=== PATIENT | male | born 1940 | race Caucasian/White ===

== ENCOUNTER 2019-03-14 18:03 | Emergency (ER) | payer OTHER ==
[~2019-03-14] VITALS: Ht 172.7 cm; Wt 72.6 kg
[~2019-03-14 18:03] MED LIST: HYDACE5325 PO
[2019-03-14 18:52] LABS: BASOPHILS ABSOLUTE AUTO 0.09 K/mm3 (0.00-0.23); BASOPHILS PERCENT AUTO 1 % (0-2); EOSINOPHILS ABSOLUTE AUTO 0.18 K/mm3 (0.00-0.68); EOSINOPHILS PERCENT AUTO 3 % (0-6); Hemoglobin 11.2 g/dL (13.5-17.5); IMMATURE GRAN ABSOLUTE AUTO 0.01 K/mm3 (0.00-0.10); IMMATURE GRAN PERCENT AUTO 0 % (0-1); LYMPHOCYTES ABSOLUTE AUTO 1.35 K/mm3 (0.84-5.20); LYMPHOCYTES PERCENT AUTO 21 % (21-46); MONOCYTES ABSOLUTE AUTO 0.79 K/mm3 (0.16-1.47); MONOCYTES PERCENT AUTO 12 % (4-13); Mean Corpuscular HGB 32.4 pg (26.0-34.0); Mean Corpuscular Volume 101 fL (80-100); Mean Platelet Volume 9.4 fL (9.1-12.4); NEUTROPHILS ABSOLUTE AUTO 3.96 K/mm3 (1.96-9.15); NEUTROPHILS PERCENT AUTO 62 % (41-73); Platelet Count 319 K/mm3 (150-400); RDW Coefficient Variation 12.9 % (11.7-14.2); RDW Standard Deviation 48.1 fL (35.1-46.3); Red Blood Cell Count 3.46 M/mm3 (4.30-5.90); White Blood Cell Count 6.38 K/mm3 (4.00-11.30)
[2019-03-14 19:18] LABS: Alanine Aminotransfer (ALT/SGP 23 U/L (12-78); Albumin/Globulin Ratio 1.1 (0.8-1.8); Alk Phos 70 U/L (50-136); Anion Gap 7 mmol/L (6-16); Aspartate Aminotrans (AST/SGOT 22 U/L (12-37); Bilirubin, Total 0.2 mg/dL (0.1-1.0); Blood Urea Nitrogen 35 mg/dL (8-24); Bun/Creatinine Ratio 18.2 (12.0-20.0); CO2, Blood 21 mmol/L (21-32); Calcium, Blood 8.7 mg/dL (8.5-10.1); Chloride, Blood 109 mmol/L (98-108); Creatinine, Blood 1.92 mg/dL (0.60-1.20); Globulin, Blood 3.7 g/dL (2.2-4.0); Glomerular Filtration Rate 36 (60-); Glucose, Blood 92 mg/dL (70-99); Potassium, Blood 5.3 mmol/L (3.5-5.5); Sodium, Blood 137 mmol/L (136-145); Total Protein, Blood 7.7 g/dL (6.4-8.2); Troponin I <0.015 ng/mL (0.000-0.040)
== END 2019-03-14 19:45 | disposition home or self-care (01) ==
LOC: ER 18:03
PROVIDERS: Physician Assistant
DX: N28.9 Disorder of kidney and ureter, unspecified (principal); E87.5 Hyperkalemia; I10 Essential (primary) hypertension; Z86.73 Personal history of transient ischemic attack (TIA), and cerebral infarction without residual deficits; F17.210 Nicotine dependence, cigarettes, uncomplicated
CPT/HCPCS: 36415; 71046; 80053; 84484; 85025; 93005; 93010; 99284-25

== ENCOUNTER 2019-11-11 20:48 | Emergency (ER) | payer OTHER ==
[~2019-11-11] VITALS: Ht 172.7 cm; Wt 70.3 kg
[2019-11-11 21:27] LABS: BASOPHILS PERCENT AUTO 1 % (0-2); EOSINOPHILS ABSOLUTE AUTO 0.26 K/mm3 (0.00-0.68); EOSINOPHILS PERCENT AUTO 3 % (0-6); Hematocrit 29.5 % (37.0-53.0); Hemoglobin 9.6 g/dL (13.5-17.5); IMMATURE GRAN ABSOLUTE AUTO 0.03 K/mm3 (0.00-0.10); IMMATURE GRAN PERCENT AUTO 0 % (0-1); LYMPHOCYTES ABSOLUTE AUTO 1.58 K/mm3 (0.84-5.20); LYMPHOCYTES PERCENT AUTO 17 % (21-46); MONOCYTES ABSOLUTE AUTO 1.15 K/mm3 (0.16-1.47); MONOCYTES PERCENT AUTO 12 % (4-13); Mean Corpuscular HGB 31.7 pg (26.0-34.0); Mean Corpuscular HGB Conc 32.5 g/dL (31.5-36.5); Mean Corpuscular Volume 97 fL (80-100); Mean Platelet Volume 9.3 fL (9.1-12.4); NEUTROPHILS ABSOLUTE AUTO 6.26 K/mm3 (1.96-9.15); NEUTROPHILS PERCENT AUTO 67 % (41-73); Platelet Count 586 K/mm3 (150-400); RDW Coefficient Variation 12.3 % (11.7-14.2); RDW Standard Deviation 44.1 fL (35.1-46.3); Red Blood Cell Count 3.03 M/mm3 (4.30-5.90); White Blood Cell Count 9.38 K/mm3 (4.00-11.30)
[2019-11-11 21:45] LABS: Albumin, Blood 3.1 g/dL (3.4-5.0); Albumin/Globulin Ratio 0.7 (0.8-1.8); Bilirubin, Total 0.2 mg/dL (0.1-1.0); Bun/Creatinine Ratio 16.8 (12.0-20.0); Calcium, Blood 9.1 mg/dL (8.5-10.1); Creatinine, Blood 2.02 mg/dL (0.60-1.20); Globulin, Blood 4.4 g/dL (2.2-4.0); Potassium, Blood 3.7 mmol/L (3.5-5.5); Total Protein, Blood 7.5 g/dL (6.4-8.2)
[2019-11-11] MEDS ORDERED: OXYC5 PO (22:19)
[2019-11-11] MEDS ORDERED: ASPI81CH PO (22:20)
[2019-11-11] MEDS ORDERED: OXYC10ER PO (22:20)
[2019-11-11] MEDS ORDERED: Lipitor10 MG PO (22:21)
[2019-11-11] MEDS ORDERED: Prozac20 MG PO (22:21)
[2019-11-11] MEDS ORDERED: GABA300 PO (22:21)
[2019-11-11] MEDS ORDERED: CENTRUM SILVER1 EAC2 PO (22:21)
[2019-11-11] MEDS ORDERED: STIOLTO RESPIMAT4 G1 (22:22)
[2019-11-11] MEDS ORDERED: PROAIR RESPICL90 MCG (22:22)
[2019-11-11] MEDS ORDERED: OMEPRAZOLE20 M1 PO (22:22)
[2019-11-11] MEDS ORDERED: TERA5 PO (22:23)
[2019-11-11] MEDS ORDERED: AMLO10 PO (22:24)
[2019-11-11] MEDS ORDERED: VITAMIN D310 MC4 (22:24)
[2019-11-11 22:28] LABS: Source, Urine Catheter
[2019-11-11 22:37] LABS: Appearance, Urine Clear (Clear); Bilirubin, Urine Neg (Neg); Blood, Urine 4+ (Neg); Color, Urine Yellow (P-Yellow); Glucose Qualitative, Urine Neg (Neg); Ketones, Urine Neg (Neg); Leukocyte Esterase, Urine 1+ (Neg); Nitrite, Urine Neg (Neg); Protein, Urine 2+ (Neg); Specific Gravity, Urine 1.015 (1.003-1.022); Urobilinogen, Urine NORM (Normal)
[2019-11-11 22:45] LABS: Bacteria Many /hpf; Squamous Epithelial Cells Not Seen /hpf (Few); White Blood Cells, Urine 0-2 /hpf (0-5)
[2019-11-12] MEDS ORDERED: CEFP200 PO (00:24)
== END 2019-11-12 01:14 | disposition home or self-care (01) ==
LOC: ER 20:48
PROVIDERS: Emergency Medicine
DX: N39.0 Urinary tract infection, site not specified (principal); I10 Essential (primary) hypertension; Z96.0 Presence of urogenital implants; Z86.73 Personal history of transient ischemic attack (TIA), and cerebral infarction without residual deficits; Z87.891 Personal history of nicotine dependence
CPT/HCPCS: 36415; 51798; 80053; 81001; 85025; 96365; 96366; 99283-25; J0696; J7030

== ENCOUNTER 2020-05-04 16:52 | Inpatient (IN) | payer OTHER ==
[~2020-05-04] VITALS: Ht 172.7 cm; Wt 76.1 kg
[~2020-05-04 16:52] MED LIST changes: +AMLO10 PO; +ASPI81CH PO; +ATOR40TA PO; +CEFP200 PO; +CENTRUM SILVER1 EAC2 PO; +GABA300 PO; +OMEPRAZOLE20 M1 PO; +OXYC10ER PO; +OXYC5 PO; +PROAIR RESPICL90 MCG INH; +Prozac20 MG PO; +STIOLTO RESPIMAT4 G1 INH; +TERA5 PO; +VITAMIN D310 MC4
[2020-05-04 18:18] LABS: BASOPHILS ABSOLUTE AUTO 0.09 K/mm3 (0.00-0.23); BASOPHILS PERCENT AUTO 2 % (0-2); EOSINOPHILS PERCENT AUTO 5 % (0-6); Hematocrit 36.6 % (37.0-53.0); Hemoglobin 12.2 g/dL (13.5-17.5); IMMATURE GRAN ABSOLUTE AUTO 0.01 K/mm3 (0.00-0.10); IMMATURE GRAN PERCENT AUTO 0 % (0-1); LYMPHOCYTES ABSOLUTE AUTO 1.45 K/mm3 (0.84-5.20); LYMPHOCYTES PERCENT AUTO 24 % (21-46); MONOCYTES ABSOLUTE AUTO 0.93 K/mm3 (0.16-1.47); MONOCYTES PERCENT AUTO 15 % (4-13); Mean Corpuscular HGB 31.8 pg (26.0-34.0); Mean Corpuscular HGB Conc 33.3 g/dL (31.5-36.5); Mean Corpuscular Volume 95 fL (80-100); Mean Platelet Volume 10.1 fL (9.1-12.4); NEUTROPHILS ABSOLUTE AUTO 3.26 K/mm3 (1.96-9.15); NEUTROPHILS PERCENT AUTO 54 % (41-73); Platelet Count 247 K/mm3 (150-400); RDW Coefficient Variation 12.9 % (11.7-14.2); RDW Standard Deviation 45.2 fL (35.1-46.3); Red Blood Cell Count 3.84 M/mm3 (4.30-5.90); White Blood Cell Count 6.04 K/mm3 (4.00-11.30)
[2020-05-04 18:25] LABS: Ethanol (Alcohol), Blood, Med <3 mg/dL
[2020-05-04 18:26] LABS: Alanine Aminotransfer (ALT/SGP 26 U/L (12-78); Albumin, Blood 3.9 g/dL (3.4-5.0); Alk Phos 107 U/L (50-136); Anion Gap 4 mmol/L (6-16); Aspartate Aminotrans (AST/SGOT 39 U/L (12-37); Bilirubin, Total 0.5 mg/dL (0.1-1.0); Blood Urea Nitrogen 34 mg/dL (8-24); Bun/Creatinine Ratio 22.2 (12.0-20.0); CO2, Blood 21 mmol/L (21-32); Calcium, Blood 9.4 mg/dL (8.5-10.1); Chloride, Blood 113 mmol/L (98-108); Creatinine, Blood 1.53 mg/dL (0.60-1.20); Globulin, Blood 3.9 g/dL (2.2-4.0); Glomerular Filtration Rate 47 (60-); Glucose, Blood 93 mg/dL (70-99); Potassium, Blood 5.3 mmol/L (3.5-5.5); Sodium, Blood 138 mmol/L (136-145); Total Protein, Blood 7.8 g/dL (6.4-8.2)
[2020-05-04 19:27] LABS: U Amphetamine Screen Not Detected; U Barbituate Screen Not Detected; U Benzodiazapine Screen Not Detected; U Cocaine Screen Not Detected; U Methamphetamine Screen Not Detected
[2020-05-04 19:28] LABS: U Buprenorphine Screen Not Detected; U Cannabinoids Screen DETECTED; U Methadone Screen Not Detected; U Opiates Screen DETECTED; U Oxycodone Screen Not Detected; U Phencyclidine Screen Not Detected; U Propoxyphene Screen Not Detected
[2020-05-04] MEDS ORDERED: DOXY100 PO (21:48)
[2020-05-04] MEDS ORDERED: FAMO20 PO (21:48)
[2020-05-04] MEDS ORDERED: NUTRITIONAL SUPPLEME PO (21:52)
[2020-05-04] MEDS ORDERED: Inderal 20 mg T20 MG PO (21:54)
[2020-05-04] MEDS ORDERED: TERA5 PO (21:54)
[2020-05-04] MEDS ORDERED: FISH OIL 1,2001 EAC7 PO (21:57)
[2020-05-04] MEDS ORDERED: GLUCOSAMINE-CH1 EAC7 PO (21:59)
[2020-05-04] MEDS ORDERED: CENTRUM SILVER1 EAC2 PO (22:01)
[2020-05-04] MEDS ORDERED: TRIA15CR3 TOP (22:01)
[2020-05-05 05:18] LABS: BASOPHILS ABSOLUTE AUTO 0.08 K/mm3 (0.00-0.23); BASOPHILS PERCENT AUTO 1 % (0-2); EOSINOPHILS ABSOLUTE AUTO 0.32 K/mm3 (0.00-0.68); EOSINOPHILS PERCENT AUTO 5 % (0-6); Hematocrit 33.6 % (37.0-53.0); IMMATURE GRAN ABSOLUTE AUTO 0.02 K/mm3 (0.00-0.10); IMMATURE GRAN PERCENT AUTO 0 % (0-1); LYMPHOCYTES ABSOLUTE AUTO 1.41 K/mm3 (0.84-5.20); LYMPHOCYTES PERCENT AUTO 24 % (21-46); MONOCYTES ABSOLUTE AUTO 0.79 K/mm3 (0.16-1.47); MONOCYTES PERCENT AUTO 13 % (4-13); Mean Corpuscular HGB 30.9 pg (26.0-34.0); Mean Corpuscular HGB Conc 32.7 g/dL (31.5-36.5); Mean Corpuscular Volume 94 fL (80-100); NEUTROPHILS ABSOLUTE AUTO 3.28 K/mm3 (1.96-9.15); NEUTROPHILS PERCENT AUTO 56 % (41-73); Platelet Count 270 K/mm3 (150-400); RDW Coefficient Variation 12.9 % (11.7-14.2); RDW Standard Deviation 44.5 fL (35.1-46.3); Red Blood Cell Count 3.56 M/mm3 (4.30-5.90)
[2020-05-05 06:13] LABS: Alanine Aminotransfer (ALT/SGP 22 U/L (12-78); Albumin, Blood 3.2 g/dL (3.4-5.0); Albumin/Globulin Ratio 0.9 (0.8-1.8); Alk Phos 93 U/L (50-136); Anion Gap 7 mmol/L (6-16); Aspartate Aminotrans (AST/SGOT 24 U/L (12-37); Bilirubin, Total 0.3 mg/dL (0.1-1.0); Blood Urea Nitrogen 33 mg/dL (8-24); Bun/Creatinine Ratio 22.1 (12.0-20.0); CHOL/HDL RATIO 3.6; CO2, Blood 23 mmol/L (21-32); Calcium, Blood 8.9 mg/dL (8.5-10.1); Chloride, Blood 114 mmol/L (98-108); Cholesterol 150 mg/dL (50-200); Creatinine, Blood 1.49 mg/dL (0.60-1.20); Globulin, Blood 3.6 g/dL (2.2-4.0); Glomerular Filtration Rate 48 (60-); Glucose, Blood 88 mg/dL (70-99); HDL Cholesterol 42 mg/dL (>39); LDL/HDL RATIO 1.2; Low Density Lipoprotein Chol 51 mg/dL (0-110); Potassium, Blood 4.4 mmol/L (3.5-5.5); Sodium, Blood 144 mmol/L (136-145); Total Protein, Blood 6.8 g/dL (6.4-8.2); Triglycerides 283 mg/dL (30-160); Very Low Density Lipoprot Chol 56 mg/dL (6-32)
--- NOTE | 2020-05-05 06:29 | NUR ---
SHIFT SUMMARY PT ER ADMIT THIS SHIFT FOR CVA, PT HAS HX OF CVA. PT IS A/OX4, BUT IS SLOW TO REPSOND, ASSISTS WITH ANSWERING MOST OF PT HEALTH HISTORY. PT HAS MININAL NEURO DEFICITS WITH ASSESSMENT. NO WEAKNESS NOTED. THERE IS SOME HEMIPARESIS PRESENT PT HAS DIFFICULTY BRINGING PEN TO PAPER TO SIGN FORM AND SHIFTS PEN OFF TO THE SIDE AWAY FROM THE PAPER. PT BP STAYING UNDER 200 SBP. PERMISSIVE HTN ALLOWED PER DR. ROD'S NOTES. PT HAS RESTED MOST OF THE NIGHT. NSR ON TELE. MRI TO BE DONE TODAY. BED IN LOWEST POSITION, CALL LIGHT WITHIN REACH.
--- NOTE | 2020-05-05 10:06 | NUR ---
Echocardiogram using 9.0ml of agitated saline contrast performed.
--- NOTE | 2020-05-05 20:10 | NUR ---
alert at baseline, cooperative but forgetful, rm air, spent here during visitation and stated he was less alert then his baseline, call light in reach, bed in low position, saline locked, no change in neuro checks, saline locked, bed in low position, down for mri via wc, bsr shared with noc nurse and pt
--- NOTE | 2020-05-05 22:40 | NUR ---
1944 79 Y/O MALE RESTING COMFORTABLY IN BED; CHEERFUL; NO NEUROLOGICAL DEFICITS NOTED.
--- NOTE | 2020-05-06 05:01 | NUR ---
SHIFT SUMMARY: 79 Y/O MALE RESTED COMFORTABLY ALL SHIFT; PT ABLE TO TRANSFER AND AMBULATE ONE STANDBY ASSIST TO BATHROOM AND BACK WITH GAIT SLOW AND STEADY; NO NEUROLOGICAL DEFICITS NOTED; PT TENDS TO BE IMPULSIVE AT TIMES WITH BED ALARM SET OFF; PT WAS ABLE TO BE REDIRECTED WITHOUT ISSUE; PT ALERT AND ORIENTED X 3; BILATERAL HAND ULTRASOUND TECHNOLOGIST AND FOOT PUSH AND PULLS STRONG AND EQUAL; TELEMETRY REFLECTS NSR PER VANI--REST ROOM MAID; BED ALARM APPLIED FOR SAFETY, BED LOW POSITION WITH CALL LIGHT AT SIDE.
[2020-05-06] MEDS ORDERED: CLOP75 PO (12:37)
--- NOTE | 2020-05-06 16:17 | NUR ---
DISCHARGE:eschorted to door of family vehicle, assisted in, driving, REVIEWED: with pt and , stay, dc medicaions, need for follow up appointments REMOVED tele and iv with no negative effect noted, pt stated that he had enjoyed his stay but was looking foreard to getting home
== END 2020-05-06 16:22 | disposition home health service (06) | DRG 65 ==
LOC: ER 16:52 → MEDS 16:53
PROVIDERS: Physician Assistant; ADMIT Internal Medicine
DX: I63.9 Cerebral infarction, unspecified (principal); I25.3 Aneurysm of heart; I12.9 Hypertensive chronic kidney disease with stage 1 through stage 4 chronic kidney disease, or unspecified chronic kidney disease; N18.30 Chronic kidney disease, stage 3 unspecified; I65.23 Occlusion and stenosis of bilateral carotid arteries; I34.0 Nonrheumatic mitral (valve) insufficiency; Z66 Do not resuscitate; J44.9 Chronic obstructive pulmonary disease, unspecified; I73.9 Peripheral vascular disease, unspecified; M19.90 Unspecified osteoarthritis, unspecified site; N40.0 Benign prostatic hyperplasia without lower urinary tract symptoms; Z79.82 Long term (current) use of aspirin; Z87.891 Personal history of nicotine dependence; Z86.73 Personal history of transient ischemic attack (TIA), and cerebral infarction without residual deficits
CPT/HCPCS: 36415; 70450; 70544; 70549; 80053; 80061; 82947; 84443; 85025; 93005; 93010; 93306; 94640; 94760; 96372; 97110; 97116; 97162; 97530; 99285-25; A9270; A9579; G0378; G0480; J1644

== ENCOUNTER 2020-08-03 12:25 | Emergency (ER) | payer OTHER ==
[~2020-08-03] VITALS: Ht 172.7 cm; Wt 72.6 kg
[~2020-08-03 12:25] MED LIST changes: +CLOP75 PO; +DOXY100 PO; +FAMO20 PO; +FISH OIL 1,2001 EAC7 PO; +GLUCOSAMINE-CH1 EAC7 PO; +Inderal 20 mg T20 MG PO; +NUTRITIONAL SUPPLEME PO; +TRIA15CR3 TOP
[2020-08-03] MEDS ORDERED: VITAMIN D3-ALO1 EACH PO (12:50)
[2020-08-03 13:34] LABS: BASOPHILS ABSOLUTE AUTO 0.12 K/mm3 (0.00-0.23); BASOPHILS PERCENT AUTO 1 % (0-2); EOSINOPHILS ABSOLUTE AUTO 0.49 K/mm3 (0.00-0.68); EOSINOPHILS PERCENT AUTO 5 % (0-6); Hematocrit 34.2 % (37.0-53.0); Hemoglobin 11.5 g/dL (13.5-17.5); IMMATURE GRAN ABSOLUTE AUTO 0.02 K/mm3 (0.00-0.10); IMMATURE GRAN PERCENT AUTO 0 % (0-1); LYMPHOCYTES PERCENT AUTO 9 % (21-46); MONOCYTES ABSOLUTE AUTO 0.92 K/mm3 (0.16-1.47); MONOCYTES PERCENT AUTO 10 % (4-13); Mean Corpuscular HGB 32.5 pg (26.0-34.0); Mean Corpuscular HGB Conc 33.6 g/dL (31.5-36.5); Mean Corpuscular Volume 97 fL (80-100); NEUTROPHILS ABSOLUTE AUTO 7.08 K/mm3 (1.96-9.15); NEUTROPHILS PERCENT AUTO 75 % (41-73); Platelet Count 291 K/mm3 (150-400); RDW Coefficient Variation 12.9 % (11.7-14.2); RDW Standard Deviation 46.5 fL (35.1-46.3); Red Blood Cell Count 3.54 M/mm3 (4.30-5.90); White Blood Cell Count 9.43 K/mm3 (4.00-11.30)
[2020-08-03 13:48] LABS: Albumin, Blood 3.7 g/dL (3.4-5.0); Bilirubin, Total 0.3 mg/dL (0.1-1.0); Bun/Creatinine Ratio 21.2 (12.0-20.0); Calcium, Blood 8.8 mg/dL (8.5-10.1); Creatinine, Blood 1.51 mg/dL (0.60-1.20); Globulin, Blood 3.7 g/dL (2.2-4.0); Potassium, Blood 4.8 mmol/L (3.5-5.5); Total Protein, Blood 7.4 g/dL (6.4-8.2); Troponin I 0.124 ng/mL (0.000-0.040)
== END 2020-08-03 15:45 | disposition short-term general hospital (02) ==
LOC: ER 12:25
PROVIDERS: Emergency Medicine
DX: S06.6X9A Traumatic subarachnoid hemorrhage with loss of consciousness of unspecified duration, initial encounter (principal); I10 Essential (primary) hypertension; Z87.891 Personal history of nicotine dependence; Z86.73 Personal history of transient ischemic attack (TIA), and cerebral infarction without residual deficits; Z79.82 Long term (current) use of aspirin; Z79.899 Other long term (current) drug therapy; W18.30XA Fall on same level, unspecified, initial encounter; Y92.000 Kitchen of unspecified non-institutional (private) residence as the place of occurrence of the external cause
CPT/HCPCS: 70450; 71045; 72125; 80053; 83880; 84484; 85025; 93005; 93010; 99285-25

== ENCOUNTER 2020-10-08 12:39 | Emergency (ER) | payer OTHER ==
[~2020-10-08] VITALS: Ht 172.7 cm; Wt 72.6 kg
[~2020-10-08 12:39] MED LIST changes: +VITAMIN D3-ALO1 EACH PO
[2020-10-08 13:12] LABS: BASOPHILS ABSOLUTE AUTO 0.09 K/mm3 (0.00-0.23); BASOPHILS PERCENT AUTO 1 % (0-2); EOSINOPHILS ABSOLUTE AUTO 0.16 K/mm3 (0.00-0.68); EOSINOPHILS PERCENT AUTO 2 % (0-6); Hematocrit 36.1 % (37.0-53.0); Hemoglobin 11.9 g/dL (13.5-17.5); IMMATURE GRAN ABSOLUTE AUTO 0.02 K/mm3 (0.00-0.10); IMMATURE GRAN PERCENT AUTO 0 % (0-1); LYMPHOCYTES ABSOLUTE AUTO 1.23 K/mm3 (0.84-5.20); LYMPHOCYTES PERCENT AUTO 19 % (21-46); MONOCYTES ABSOLUTE AUTO 0.82 K/mm3 (0.16-1.47); MONOCYTES PERCENT AUTO 12 % (4-13); Mean Corpuscular HGB 32.4 pg (26.0-34.0); Mean Corpuscular Volume 98 fL (80-100); Mean Platelet Volume 9.7 fL (9.1-12.4); NEUTROPHILS ABSOLUTE AUTO 4.29 K/mm3 (1.96-9.15); NEUTROPHILS PERCENT AUTO 65 % (41-73); Platelet Count 322 K/mm3 (150-400); RDW Coefficient Variation 12.5 % (11.7-14.2); RDW Standard Deviation 45.3 fL (35.1-46.3); Red Blood Cell Count 3.67 M/mm3 (4.30-5.90); White Blood Cell Count 6.61 K/mm3 (4.00-11.30)
[2020-10-08 13:25] LABS: Albumin, Blood 3.2 g/dL (3.4-5.0); Albumin/Globulin Ratio 0.9 (0.8-1.8); Bilirubin, Total 0.3 mg/dL (0.1-1.0); Bun/Creatinine Ratio 16.9 (12.0-20.0); Calcium, Blood 8.9 mg/dL (8.5-10.1); Creatinine, Blood 1.3 mg/dL (0.60-1.20); Globulin, Blood 3.7 g/dL (2.2-4.0); Potassium, Blood 4.4 mmol/L (3.5-5.5); Total Protein, Blood 6.9 g/dL (6.4-8.2)
[2020-10-08 17:46] LABS: International Normalized Ratio 0.99; Prothrombin Time Results 10.7 Sec (9.7-11.5)
== END 2020-10-08 21:20 | disposition short-term general hospital (02) ==
LOC: ER 12:39
PROVIDERS: Emergency Medicine; Student in an Organized Health Care Education/Training Program
DX: I62.01 Nontraumatic acute subdural hemorrhage (principal); R41.0 Disorientation, unspecified; I10 Essential (primary) hypertension; T45.525A Adverse effect of antithrombotic drugs, initial encounter; Z87.891 Personal history of nicotine dependence; Z79.899 Other long term (current) drug therapy
CPT/HCPCS: 36415; 70450; 80053; 85025; 85610; 85730; 86850; 86900; 86901; 93005; 93010; 96365; 96366; 96368; 96375; 99285-25; J0360; J1953; J2597

== ENCOUNTER 2020-11-07 18:53 | Emergency (ER) | payer OTHER ==
[~2020-11-07] VITALS: Ht 175.3 cm; Wt 76.7 kg
[2020-11-07 19:33] LABS: BASOPHILS PERCENT AUTO 1 % (0-2); EOSINOPHILS ABSOLUTE AUTO 0.41 K/mm3 (0.00-0.68); EOSINOPHILS PERCENT AUTO 5 % (0-6); Hematocrit 37.1 % (37.0-53.0); IMMATURE GRAN ABSOLUTE AUTO 0.09 K/mm3 (0.00-0.10); IMMATURE GRAN PERCENT AUTO 1 % (0-1); LYMPHOCYTES ABSOLUTE AUTO 1.41 K/mm3 (0.84-5.20); LYMPHOCYTES PERCENT AUTO 19 % (21-46); MONOCYTES ABSOLUTE AUTO 0.87 K/mm3 (0.16-1.47); MONOCYTES PERCENT AUTO 11 % (4-13); Mean Corpuscular HGB 31.8 pg (26.0-34.0); Mean Corpuscular HGB Conc 32.3 g/dL (31.5-36.5); Mean Corpuscular Volume 98 fL (80-100); Mean Platelet Volume 9.8 fL (9.1-12.4); NEUTROPHILS ABSOLUTE AUTO 4.74 K/mm3 (1.96-9.15); NEUTROPHILS PERCENT AUTO 62 % (41-73); Platelet Count 347 K/mm3 (150-400); RDW Coefficient Variation 12.4 % (11.7-14.2); RDW Standard Deviation 45.1 fL (35.1-46.3); Red Blood Cell Count 3.77 M/mm3 (4.30-5.90); White Blood Cell Count 7.62 K/mm3 (4.00-11.30)
[2020-11-07 19:44] LABS: Albumin, Blood 3.3 g/dL (3.4-5.0); Albumin/Globulin Ratio 0.8 (0.8-1.8); Bilirubin, Total 0.3 mg/dL (0.1-1.0); Bun/Creatinine Ratio 16.4 (12.0-20.0); Calcium, Blood 8.9 mg/dL (8.5-10.1); Creatinine, Blood 1.65 mg/dL (0.60-1.20); Globulin, Blood 3.9 g/dL (2.2-4.0); Potassium, Blood 4.9 mmol/L (3.5-5.5); Total Protein, Blood 7.2 g/dL (6.4-8.2)
== END 2020-11-07 21:50 | disposition home or self-care (01) ==
LOC: ER 18:53
PROVIDERS: Emergency Medicine
DX: S09.90XA Unspecified injury of head, initial encounter (principal); I62.03 Nontraumatic chronic subdural hemorrhage; I10 Essential (primary) hypertension; Z79.82 Long term (current) use of aspirin; Z87.891 Personal history of nicotine dependence; Z79.02 Long term (current) use of antithrombotics/antiplatelets; W01.198A Fall on same level from slipping, tripping and stumbling with subsequent striking against other object, initial encounter; Y93.G1 Activity, food preparation and clean up; Y92.000 Kitchen of unspecified non-institutional (private) residence as the place of occurrence of the external cause
CPT/HCPCS: 36415; 70450; 71045; 72125; 80053; 85025; 99284-25

== ENCOUNTER 2021-04-01 14:57 | Inpatient (IN) | payer OTHER ==
[~2021-04-01] VITALS: Ht 172.7 cm; Wt 72.2 kg
[2021-04-01 15:28] LABS: BASOPHILS ABSOLUTE AUTO 0.09 K/mm3 (0.00-0.23); BASOPHILS PERCENT AUTO 1 % (0-2); EOSINOPHILS ABSOLUTE AUTO 0.39 K/mm3 (0.00-0.68); EOSINOPHILS PERCENT AUTO 6 % (0-6); Hematocrit 39.5 % (37.0-53.0); Hemoglobin 12.8 g/dL (13.5-17.5); IMMATURE GRAN ABSOLUTE AUTO 0.01 K/mm3 (0.00-0.10); IMMATURE GRAN PERCENT AUTO 0 % (0-1); LYMPHOCYTES ABSOLUTE AUTO 1.59 K/mm3 (0.84-5.20); LYMPHOCYTES PERCENT AUTO 25 % (21-46); MONOCYTES ABSOLUTE AUTO 0.93 K/mm3 (0.16-1.47); MONOCYTES PERCENT AUTO 14 % (4-13); Mean Corpuscular HGB 31.4 pg (26.0-34.0); Mean Corpuscular HGB Conc 32.4 g/dL (31.5-36.5); Mean Corpuscular Volume 97 fL (80-100); Mean Platelet Volume 10.1 fL (9.1-12.4); NEUTROPHILS ABSOLUTE AUTO 3.46 K/mm3 (1.96-9.15); NEUTROPHILS PERCENT AUTO 53 % (41-73); Platelet Count 264 K/mm3 (150-400); RDW Coefficient Variation 13.7 % (11.7-14.2); RDW Standard Deviation 48.7 fL (35.1-46.3); Red Blood Cell Count 4.08 M/mm3 (4.30-5.90); White Blood Cell Count 6.47 K/mm3 (4.00-11.30)
[2021-04-01 15:49] LABS: Alanine Aminotransfer (ALT/SGP 20 U/L (12-78); Albumin, Blood 3.2 g/dL (3.4-5.0); Albumin/Globulin Ratio 0.9 (0.8-1.8); Alk Phos 105 U/L (50-136); Anion Gap 6 mmol/L (6-16); Aspartate Aminotrans (AST/SGOT 19 U/L (12-37); Bilirubin, Total 0.3 mg/dL (0.1-1.0); Blood Urea Nitrogen 25 mg/dL (8-24); Bun/Creatinine Ratio 16.2 (12.0-20.0); CO2, Blood 25 mmol/L (21-32); Calcium, Blood 8.4 mg/dL (8.5-10.1); Chloride, Blood 110 mmol/L (98-108); Creatinine, Blood 1.54 mg/dL (0.60-1.20); Globulin, Blood 3.7 g/dL (2.2-4.0); Glomerular Filtration Rate 44 (60-); Glucose, Blood 135 mg/dL (70-99); Potassium, Blood 4.7 mmol/L (3.5-5.5); Sodium, Blood 141 mmol/L (136-145); Total Protein, Blood 6.9 g/dL (6.4-8.2); Troponin I <0.015 ng/mL (0.000-0.040)
[2021-04-01 17:59] LABS: Source, Urine Clean Catch
[2021-04-01 18:01] LABS: Bilirubin, Urine Neg (Neg); Blood, Urine Neg (Neg); Glucose Qualitative, Urine Neg (Neg); Ketones, Urine Neg (Neg); Leukocyte Esterase, Urine Neg (Neg); Nitrite, Urine Neg (Neg); Protein, Urine Neg (Neg); Urobilinogen, Urine NORM (Normal)
[2021-04-01 18:05] LABS: Appearance, Urine Clear (Clear); Color, Urine Pale Yellow (P-Yellow)
[2021-04-01 19:30] LABS: Influenza A, PCR NEGATIVE (NEGATIVE); Influenza B, PCR NEGATIVE (NEGATIVE); Resp Syncytial Virus, PCR NEGATIVE (NEGATIVE); SARS-Cov-2 (COVID-19) PCR, MMC NEGATIVE (NEGATIVE)
[2021-04-01] MEDS ORDERED: QUET25 PO (22:00)
[2021-04-01] MEDS ORDERED: AMLO10 PO (22:01)
[2021-04-01] MEDS ORDERED: TIOT18 INH (22:02)
--- NOTE | 2021-04-02 03:15 | NUR ---
ADMISSION PATIENT ARRIVED FROM ER TO PCU 19. PATIENT SLID OVER TO PCU BED BY NURSING STAFF. PATIENT IS VERY CONFUSED BUT ABLE TO ANSWER SIMPLE YES OR NO QUESTIONS. PATIENT EASILY AGITATED WITH SOME CARE BUT IS EASILY REDIRECTABLE. LEFT AC IV DCd DUE TO LEAKAGE, NEW IV PLACED BY SEWING SUPERVISOR. VSS. PATIENT ON RA WITH O2 SAT >90%. PATIENT ORIENTED TO ROOM AND CALL LIGHT SYSTEM.
[2021-04-02 03:27] LABS: BASOPHILS ABSOLUTE AUTO 0.09 K/mm3 (0.00-0.23); BASOPHILS PERCENT AUTO 1 % (0-2); EOSINOPHILS ABSOLUTE AUTO 0.34 K/mm3 (0.00-0.68); EOSINOPHILS PERCENT AUTO 4 % (0-6); Hematocrit 39.3 % (37.0-53.0); Hemoglobin 12.6 g/dL (13.5-17.5); IMMATURE GRAN ABSOLUTE AUTO 0.02 K/mm3 (0.00-0.10); IMMATURE GRAN PERCENT AUTO 0 % (0-1); LYMPHOCYTES ABSOLUTE AUTO 1.57 K/mm3 (0.84-5.20); LYMPHOCYTES PERCENT AUTO 21 % (21-46); MONOCYTES ABSOLUTE AUTO 1.05 K/mm3 (0.16-1.47); MONOCYTES PERCENT AUTO 14 % (4-13); Mean Corpuscular HGB 30.7 pg (26.0-34.0); Mean Corpuscular HGB Conc 32.1 g/dL (31.5-36.5); Mean Corpuscular Volume 96 fL (80-100); Mean Platelet Volume 9.8 fL (9.1-12.4); NEUTROPHILS ABSOLUTE AUTO 4.59 K/mm3 (1.96-9.15); NEUTROPHILS PERCENT AUTO 60 % (41-73); Platelet Count 262 K/mm3 (150-400); RDW Coefficient Variation 13.5 % (11.7-14.2); RDW Standard Deviation 47.4 fL (35.1-46.3); White Blood Cell Count 7.66 K/mm3 (4.00-11.30)
[2021-04-02 03:59] LABS: Bun/Creatinine Ratio 22.1 (12.0-20.0); Calcium, Blood 8.7 mg/dL (8.5-10.1); Creatinine, Blood 1.36 mg/dL (0.60-1.20); Potassium, Blood 4.5 mmol/L (3.5-5.5)
--- NOTE | 2021-04-02 06:28 | NUR ---
SHIFT SUMMARY PATIENT ALERT AND ORIENTED TO SELF ONLY. ABLE TO ANSWER SIMPLE YES OR NO QUESTIONS ONLY. VSS. MEDICATED ONCE WITH PRN HYDRALAZINE DUE TO SYSTOLIC BP ABOVE 150. BED ALARM IN PLACE FOR SAFETY. NO OTHER SIGNIFICANT CHANGES SINCE ADMISSION NOTE. WILL REPORT TO DAY SHIFT RN.
[2021-04-02] MEDS ORDERED: Primidone50 MG PO (16:20)
--- NOTE | 2021-04-02 17:23 | NUR ---
SHIFT SUMMARY NO ACUTE CHANGES NOTED THIS SHIFT. PT AT BASELINE MENTATION. COOPERATIVE WITH CARE AND PLEASANT. Q4 NEURO CHECKS SHOW NO CHANGE. NO STROKE LIKE SYMPTOMS NOTED. PT IN SR/SB, SBP 120-150. ON RA. AND OTHERWISE HAS VOIDED IN URINAL. REPOSITIONED SELF IN BED. PT'S SPOUSE, IN ROOM AROUND 1430 TO HELP WITH PT DECISIONS. SPOUSE COOPERATIVE WITH RULES AND HAS BEEN STAYING IN ROOM WITH PT AND ASSISTING WITH FEEDING, CLEANING, TOILETING, ETC. AWAITING ROOM AT [facility], NO ROOMS AVAILABLE YET PER EQUALIZER OPERATOR. OTHERWISE, BED ALARM IN PLACE. CALL LIGHT WITHIN REACH. BED IN LOW POSITION.
--- NOTE | 2021-04-02 21:00 | NUR ---
CALL TO HOSPITALIST PATIENT HALLUCINATING AND STATING "THERE ARE BUGS IN THE BED". PATIENT SWIPING AT STAFF TRYING TO GET THE BUGS OFF OF THEM. PATIENT REFUSING NIGHT TIME PO MEDS DUE TO IT BEING "POISON". HOSPITALIST MADE AWARE OF THIS, ORDERS RECIEVED FOR IV HALDOL. BED ALARM IN PLACE FOR PATIENT SAFETY.
--- NOTE | 2021-04-02 23:37 | NUR ---
0000 PATIENT FINALLY SETTLED INTO BED AFTER HAVING VISUAL HALLUCINATIONS, CLIMBING OUT OF BED WELL RECIEVING HALDOL. PUSHING OUT MIDNIGHT VITALS SO PATIENT CAN GET REST, WILL GET VITALS WHEN THE PATIENT IS AWAKE NEXT.
[2021-04-03 03:39] LABS: Hematocrit 40.1 % (37.0-53.0); Hemoglobin 13.4 g/dL (13.5-17.5); Mean Corpuscular HGB 31.5 pg (26.0-34.0); Mean Corpuscular HGB Conc 33.4 g/dL (31.5-36.5); Mean Corpuscular Volume 94 fL (80-100); Mean Platelet Volume 9.8 fL (9.1-12.4); Platelet Count 261 K/mm3 (150-400); RDW Coefficient Variation 13.8 % (11.7-14.2); RDW Standard Deviation 47.6 fL (35.1-46.3); Red Blood Cell Count 4.25 M/mm3 (4.30-5.90); White Blood Cell Count 7.76 K/mm3 (4.00-11.30)
[2021-04-03 03:57] LABS: Albumin, Blood 3.5 g/dL (3.4-5.0); Anion Gap 6 mmol/L (6-16); Blood Urea Nitrogen 25 mg/dL (8-24); CO2, Blood 26 mmol/L (21-32); Calcium, Blood 9.6 mg/dL (8.5-10.1); Chloride, Blood 108 mmol/L (98-108); Creatinine, Blood 1.19 mg/dL (0.60-1.20); Glomerular Filtration Rate 59 (60-); Glucose, Blood 115 mg/dL (70-99); Potassium, Blood 4.2 mmol/L (3.5-5.5); Sodium, Blood 140 mmol/L (136-145)
--- NOTE | 2021-04-03 05:38 | NUR ---
SHIFT SUMMARY PATIENT REMAINS ALERT AND ORIENTED TO SELF ONLY. NO CHANGES IN Q4 NEURO CHECKS. VSS AND PATIENT IS ON RA. MEDICATED WITH PRN FOR SYSTOLIC BP IN 180s, OTHERWISE SBP HAS MAINTAINED AT 150 OR BELOW. PATIENT MEDICATED OVERNIGHT WITH HALDOL DUE TO PATIENT CONTINUOUSLY PULLING AT LINES AND TRYING TO GET OUT OF BED. BED ALARM IN PLACE FOR SAFETY. PATIENT VOIDING IN URINAL WITH ASSISTANCE OF NURSING STAFF. BRIEFS IN PLACE. CALL LIGHT IN REACH. NO OTHER SIGNIFICANT CHANGES SINCE PREVIOUS NOTE.
--- NOTE | 2021-04-03 18:11 | NUR ---
SHIFT SUMMARY PT IS ALERT TO SELF AND . HE IS SLOW TO RESPOND AND RESONSES ARE SHORT YES OR NO. DEVI WAS AT BEDSIDE FOR MAJORITY OF SHIFT AND PATIENT APPEARS TO BE MUCH MORE DIRECTABLE IN HER PRESENCE. VITAL SIGNS HAVE REMAINED STABLE WITH SYSTOLIC BP REMAINING BELOW 150. SPO2 IN 90'S VIA ROOM AIR. PT DENIED CHEST PAIN/PRESSURE OR FEELING SHORT OF BREATH. IV IN LEFT HAND IS SALINE LOCKED. PT HAS BEEN ABLE TO AMBULATE TO BATHROOM A 2 PERSON SBA. BED AND CHAIR ALARM HAVE BEEN UTILIZED ALL DAY. PT DOES NOT USE CALL LIGHT FOR ASSISTANCE. NO ACUTE CHANGES NOTED. WILL CONTINUE TO MONITOR UNTIL REPORT GIVEN.
--- NOTE | 2021-04-03 21:37 | NUR ---
UPDATE PT HAVING EXP WHEEZES T/O NO PRN RT TREATMENTS AVAILABLE. PHYSICIAN NOTIFIED, ORDERS FOR ALBUTEROL Q 2 PRN. SEE EMAR. RT NOTIFIED.
--- NOTE | 2021-04-04 05:32 | NUR ---
SHIFT SUMMARY PT ALERT TO SELF. PT CONFUSED AND RESPONDS WITH SHORT SENTENCES OR WORDS. Q 4 NEURO CHECKS DONE. HR STABLE. BP STABLE. NO CP OR PRESSURE REPORTED. OXYGEN SATURATION MAINTAINED ABOVE 92% ON RA. DEPENDS IN PLACE FOR INCONTINENCE. PT ABLE TO ASSIST IN TURNS. PT SLEPT T/O SHIFT. PT CALM AND DIRECTABLE. PT HAS EXP WHEEZES AT TIMES, RT NOTIFIED. WILL CONT TO MONITOR UNTIL REPORT GIVEN TO DAYSHIFT RN.
--- NOTE | 2021-04-04 13:20 | NUR ---
DISCHARGE NOTE DISCHARGE INSTRUCTIONS GIVEN TO PATIENT'S ASHLEY. INSTRUCTIONS INCLUDED FOLLOW UP APPOINTMENTS WELL DX EDUCATION. PATIENT LEFT PCU ROOM AT 1304 WITH ALL OF PERSONAL BELONGINGS VIA WHEELCHAIR ESCORTED BY THIS NURSE WELL . PT WAS STABLE UPON DISCHARGE.
== END 2021-04-04 13:04 | disposition home or self-care (01) | DRG 64 ==
LOC: ER 14:57 → ERHOLD 14:58 → PCU 04-02 02:55
PROVIDERS: Emergency Medicine; Internal Medicine; ADMIT Family Medicine
DX: I62.01 Nontraumatic acute subdural hemorrhage (principal); G92.8 Other toxic encephalopathy; I12.9 Hypertensive chronic kidney disease with stage 1 through stage 4 chronic kidney disease, or unspecified chronic kidney disease; N18.30 Chronic kidney disease, stage 3 unspecified; K21.9 Gastro-esophageal reflux disease without esophagitis; E78.5 Hyperlipidemia, unspecified; F32.A Depression, unspecified; Z20.822 Contact with and (suspected) exposure to COVID-19; G20 Parkinson's disease; F02.80 Dementia in other diseases classified elsewhere, unspecified severity, without behavioral disturbance, psychotic disturbance, mood disturbance, and anxiety; G62.9 Polyneuropathy, unspecified; Z86.73 Personal history of transient ischemic attack (TIA), and cerebral infarction without residual deficits; M19.90 Unspecified osteoarthritis, unspecified site; Z98.890 Other specified postprocedural states; Z79.899 Other long term (current) drug therapy; Z79.82 Long term (current) use of aspirin; Z87.891 Personal history of nicotine dependence; M54.9 Dorsalgia, unspecified; G89.29 Other chronic pain
CPT/HCPCS: 0241U; 36415; 51701; 70450; 80048; 80053; 80069; 81003; 82140; 84443; 84484; 85025; 85027; 93005; 93010; 94640; 94760; 96374; 99285-25; A9270; J0360; J1630

== ENCOUNTER 2021-06-11 12:20 | Inpatient (IN) | payer OTHER ==
[~2021-06-11] VITALS: Ht 170.2 cm; Wt 74.5 kg
[~2021-06-11 12:20] MED LIST changes: +CEFD300 PO; +Primidone50 MG PO; +QUET25 PO; +TIOT18 INH
[2021-06-11 12:42] LABS: BASOPHILS ABSOLUTE AUTO 0.12 K/mm3 (0.00-0.23); BASOPHILS PERCENT AUTO 2 % (0-2); EOSINOPHILS ABSOLUTE AUTO 0.41 K/mm3 (0.00-0.68); EOSINOPHILS PERCENT AUTO 5 % (0-6); Hematocrit 41.3 % (37.0-53.0); Hemoglobin 13.2 g/dL (13.5-17.5); IMMATURE GRAN ABSOLUTE AUTO 0.02 K/mm3 (0.00-0.10); IMMATURE GRAN PERCENT AUTO 0 % (0-1); LYMPHOCYTES ABSOLUTE AUTO 1.95 K/mm3 (0.84-5.20); LYMPHOCYTES PERCENT AUTO 24 % (21-46); MONOCYTES PERCENT AUTO 12 % (4-13); Mean Corpuscular HGB 31.5 pg (26.0-34.0); Mean Corpuscular Volume 99 fL (80-100); Mean Platelet Volume 9.8 fL (9.1-12.4); NEUTROPHILS ABSOLUTE AUTO 4.68 K/mm3 (1.96-9.15); NEUTROPHILS PERCENT AUTO 57 % (41-73); Platelet Count 341 K/mm3 (150-400); RDW Coefficient Variation 13.2 % (11.7-14.2); RDW Standard Deviation 48.2 fL (35.1-46.3); Red Blood Cell Count 4.19 M/mm3 (4.30-5.90); White Blood Cell Count 8.18 K/mm3 (4.00-11.30)
[2021-06-11 12:55] LABS: Albumin, Blood 3.4 g/dL (3.4-5.0); Albumin/Globulin Ratio 0.8 (0.8-1.8); Bilirubin, Total 0.3 mg/dL (0.1-1.0); Bun/Creatinine Ratio 14.9 (12.0-20.0); Calcium, Blood 8.9 mg/dL (8.5-10.1); Creatinine, Blood 1.68 mg/dL (0.60-1.20); Globulin, Blood 4.1 g/dL (2.2-4.0); Potassium, Blood 4.4 mmol/L (3.5-5.5); Total Protein, Blood 7.5 g/dL (6.4-8.2)
[2021-06-11 12:57] LABS: Source, Urine Straight Cath
[2021-06-11 13:04] LABS: Appearance, Urine Clear (Clear); Bilirubin, Urine Neg (Neg); Blood, Urine Neg (Neg); Color, Urine Yellow (P-Yellow); Glucose Qualitative, Urine Neg (Neg); Ketones, Urine Neg (Neg); Leukocyte Esterase, Urine Neg (Neg); Nitrite, Urine Neg (Neg); Protein, Urine Neg (Neg); Specific Gravity, Urine 1.015 (1.003-1.022); Urobilinogen, Urine NORM (Normal)
[2021-06-11 13:45] LABS: Influenza A, PCR NEGATIVE (NEGATIVE); Influenza B, PCR NEGATIVE (NEGATIVE); Resp Syncytial Virus, PCR NEGATIVE (NEGATIVE); SARS-Cov-2 (COVID-19) PCR, MMC NEGATIVE (NEGATIVE)
[2021-06-11] MEDS ORDERED: FAMO20 PO (16:31)
[2021-06-11] MEDS ORDERED: CENTRUM SILVER1 EAC2 PO (16:31)
[2021-06-11] MEDS ORDERED: STIOLTO RESPIMAT4 G1 INH (16:33)
[2021-06-11] MEDS ORDERED: ASPI81CH PO (16:34)
[2021-06-11] MEDS ORDERED: Primidone50 MG PO (16:35)
[2021-06-11] MEDS ORDERED: Vitamin D1000 UNI1 PO (16:36)
--- NOTE | 2021-06-11 19:28 | NUR ---
SHIFT SUMMARY- PT ADMITTED THROUGH THE ED FOR NEW CVA, PT HAS ALTERED MENTAL STATUS AND IS ONLY ORIENTED TO SELF. PPT ELECTRICAL TECH/PROJECT MANAGER A Hx OC CVA'S AND HAD A HISTORY OF INTRACRANIAL HEMORRHAGE. CT SCAN SHOWS A NEW ISCHEMIC CVA WITH NO SIGN OF A CURRRENT BLEED. PT WAS NOT IMPULSIVE T/O THHE SHIFT. SPOUSE WAS AT THEE BEDSIDE. SHE HAS LEFT, ADMISSION IS COMPLETED, MRI SCREENING FORM WAS COMPLETED AND SENT TO MRI. PLAN IS FOR MRI TOMORROW. RECIEVED A CALL FROM TELE, PT WAS NO LONGER ON TELE (AT SHIFT CHANGE) PT WAS SITTING UP ON THE EOB, HE HAD RMOVED HIS GOWN AND TELE. STAFF OFFERED A URINAL PT DID NOT VOID. REPLACED TELE ANND INCREASED THE SENSITIVVIITY ON THE BED ALARM IT DID NOT GO OFF. NIGHT RN PRESENT FOR THIS LAST EVENT.
--- NOTE | 2021-06-11 20:43 | NUR ---
NURSE NOTE: MD NOTIFIED BP 186/82 WITH NO PARAMETERS ORDERED FOR CVA PT. MD GAVE TELEPHONE ORDER TO NOTIFY IF SYSTOLIC BP 220>. NURSE NOTIFY ORDER PLACED.
--- NOTE | 2021-06-11 23:45 | NUR ---
NURSE NOTE: MD BARBER NOTIFIED PATIENTS INCREASED CONFUSION, RESTLESSNESS. PATIENT CONTINUED ATTEMPTS TO GET OUT OF BED, SELF REMOVAL OF IV. MD GAVE TELEPHONE ORDER FOR ONE TIME DOSE TEMAZEPAM 15MG PO. APPROVED OKAY TO LEAVE IV OUT WHILE PATIENT IS ON TELEMETRY. ADDITIONAL ORDER FOR 4 SIDE RAILS RESTRAINT. WILL CONTINUE TO MONITOR PATIENT AND CONSIDER NON VIOLENT RESTRAINTS IF CONTINUED SAFETY CONCERNS.
--- NOTE | 2021-06-12 04:25 | NUR ---
SHIFT SUMMARY: ALERT TO SELF ONLY, CONTINUED CONFUSION THROUGHOUT THE NIGHT. INCREASED RESTLESSNESS WITH MULTIPLE ATTEMPTS TO GET OUT OF BED. ATTEMPTED TO AMBULATE PATIENT TO BATHROOM, PATIENT VERY WEAK AND DIFFICULTY FOLLOWING COMMANDS. PATIENT SELF REMOVED IV- MD GAVE APPROVAL FOR IV TO REMAIN OUT WHILE TELEMETRY MONITORING CONTINUES. MD GAVE ORDER FOR RESTRAINTS OF ALL 4 BED RAILS TO BE UP AND A ONE TIME DOSE OF TEMAZEPAM PO ONCE THIS SHIFT. POST ADMINISTRATION PATIENT WAS ABLE TO REST COMFORTABLY WITH NO FURTHER ATTEMPTS TO PULL LINES OR TRY AND GET OUT OF BED. BED ALARM ACTIVATED, BED IN LOW POSITION, 4 RAILS UP ON BED, CALL ABRAHAM IN REACH.
[2021-06-12 05:25] LABS: BASOPHILS ABSOLUTE AUTO 0.04 K/mm3 (0.00-0.23); BASOPHILS PERCENT AUTO 0 % (0-2); EOSINOPHILS ABSOLUTE AUTO 0.01 K/mm3 (0.00-0.68); EOSINOPHILS PERCENT AUTO 0 % (0-6); Hematocrit 40.9 % (37.0-53.0); Hemoglobin 13.4 g/dL (13.5-17.5); IMMATURE GRAN ABSOLUTE AUTO 0.03 K/mm3 (0.00-0.10); IMMATURE GRAN PERCENT AUTO 0 % (0-1); LYMPHOCYTES ABSOLUTE AUTO 0.85 K/mm3 (0.84-5.20); LYMPHOCYTES PERCENT AUTO 10 % (21-46); MONOCYTES ABSOLUTE AUTO 0.23 K/mm3 (0.16-1.47); MONOCYTES PERCENT AUTO 3 % (4-13); Mean Corpuscular HGB 31.2 pg (26.0-34.0); Mean Corpuscular HGB Conc 32.8 g/dL (31.5-36.5); Mean Corpuscular Volume 95 fL (80-100); Mean Platelet Volume 9.7 fL (9.1-12.4); NEUTROPHILS ABSOLUTE AUTO 7.81 K/mm3 (1.96-9.15); NEUTROPHILS PERCENT AUTO 87 % (41-73); Platelet Count 302 K/mm3 (150-400); RDW Coefficient Variation 13.2 % (11.7-14.2); RDW Standard Deviation 45.9 fL (35.1-46.3); White Blood Cell Count 8.97 K/mm3 (4.00-11.30)
[2021-06-12 05:53] LABS: Bun/Creatinine Ratio 18.6 (12.0-20.0); Calcium, Blood 9.2 mg/dL (8.5-10.1); Creatinine, Blood 1.4 mg/dL (0.60-1.20); Potassium, Blood 5.1 mmol/L (3.5-5.5)
--- NOTE | 2021-06-12 11:00 | NUR ---
PUT DOWN THE FOURTH SIDE RAIL- RESTRAINTS DC'D SPOUSE IS AT THE BEDSIDE AND PT IS CALMLY LAYING IN BED.
--- NOTE | 2021-06-12 17:58 | NUR ---
THE IMAGES THAT WERE CHANGED IN PRIORITY TO STAT, WERE COMPLETED STAT. CALLED DR JENSEN WITH THE UPDATE THAT THE IMAGE RESULTS WERE IN. DR JENSEN REQUESTED IMAGES TO BE PUSHED TO [facility]. CALLED IMAGING AND REQUESTED THEY PUSH THE IMAGES TO [facility]. BOW MAKING MACHINE OPERATOR UPDATED.
--- NOTE | 2021-06-12 18:03 | NUR ---
SHIFT SUMMARY - PT TOLERATED MEALS, INCLUDING BREAKFAST, WITHOUT ISSUES. SPOUSE WANTED PT TAKEN OFF CARDIAC DIET, HOWEVER DR JENSEN OPTED FOR PT TO REMAIN ON CARDIAC DIET. ECHO AND MRI WERE BOTH COMPLETED THIS SHIFT. MRI ORDERS WERE CHANGED TO STAT BY DR JENSEN. PT WAS HYPERTENSIVE T/O SHIFT STAYING AROUND 180/80 AND THEN DROPPING TO 148/86 AT 1626. PT REMAINS ORIENTED TO SELF AND FAMILY ONLY, AND HAD AN EPISODE OF CONFUSION WHERE HE LEFT THE BED TRYING TO REACH "THE PROCESSOR". PT IS VOIDING AT REGULAR INTERVALS, HE USES THE URINAL FOR HIS SPOUSE AND UNSUCCESSFULLY ATTEMPTS TO VOID IN URINAL WITH STAFF. IF SPOUSE IS NOT HERE HE GETS OUT OF BED BY HIMSELF TO USE THE BATHROOM AND SOILS HIS ATTENDS. 4 SIDERAIL RESTRAINTS USED AT THE START OF THE SHIFT AND RESTARTED AT THE END, SEE PREVIOUS NOTES FOR DETAILS (RESTRAINTS RESTARTED). AT 1700 PT HAD A BOWEL MOVEMENT IN HIS ATTENDS, SPOUSE AND NURSING STUDENTS DID PERICARE AND ATTENDS CHANGE. WILL PASS ON REPORT TO NIGHT RN.
--- NOTE | 2021-06-12 18:46 | NUR ---
RESTRAINT RESTARTED- PT SPOUSE LEFT FOR THE NIGHT. THE PT HAS BEEN EXPERIENCING AN INCREASE IN VISUAL HALLUCINATIONS THIS EVENING AND HE IS CONFUSED ANND UNSTEADY ON HIS FEET. CALLED DR JENSEN ABOUT RESTARTING THE FOUR SIDERAILL RESTRAINT, RECIEVED AN ORDER FOR THE RESTRAINT, SPOUSE HAD RAISED THE FOURTH RAIL BEFORE SHE LEFT. DR VASQUEZ.
[2021-06-13 09:25] LABS: CHOL/HDL RATIO 2.3; Cholesterol 127 mg/dL (50-200); HDL Cholesterol 55 mg/dL (>39); LDL/HDL RATIO 0.9; Low Density Lipoprotein Chol 49 mg/dL (0-110); Triglycerides 117 mg/dL (30-160); Very Low Density Lipoprot Chol 23 mg/dL (6-32)
[2021-06-13] MEDS ORDERED: AMLO10 PO (12:50)
[2021-06-13] MEDS ORDERED: Prednisone10 MG PO (12:52)
--- NOTE | 2021-06-13 15:55 | NUR ---
LATE ENTRY/DISCHARGE SUMMARY: PT DISCHARGED FROM RM 336 TODAY POST RECEIVING HOLTER MONITOR. PT PRESENT AND GIVEN DISCHARGE INSTRUCTIONS. ADVISED HER TO CALL [facility] IF SHE HAS NOT HEARD FROM THEM BY THEN TO SCHEDULE A FOLLOW-UP APPOINTMENT. APPOINTMENT ATTEMPTED TO BE SCHEDULED BUT COULD NOT GET THROUGH TO THE CLINIC. PER [facility] A NOTE WAS SENT TO THE PROVIDER. ASSISTED WITH PACKING UP BELONGINGS AND ASSISTED PT WITH GETTING DRESSED. REMOVED IV AND TELE AND PT TX TO WC AND ESCORTED TO POV BY BISHOP MOMIN. ADVISED TO START PREDNISONE AND AMLODIPINE TOMORROW PT HAS ALREADY HAD THESE MEDICATIONS.
== END 2021-06-13 13:47 | disposition home health service (06) | DRG 65 ==
LOC: ER 12:20 → MEDS 12:21 → ENPENDDIS 06-13 11:04 → MEDS 06-13 13:47
PROVIDERS: Student in an Organized Health Care Education/Training Program; ADMIT Internal Medicine
DX: I63.9 Cerebral infarction, unspecified (principal); J44.1 Chronic obstructive pulmonary disease with (acute) exacerbation; F32.A Depression, unspecified; N18.30 Chronic kidney disease, stage 3 unspecified; Z20.822 Contact with and (suspected) exposure to COVID-19; I12.9 Hypertensive chronic kidney disease with stage 1 through stage 4 chronic kidney disease, or unspecified chronic kidney disease; M19.90 Unspecified osteoarthritis, unspecified site; F01.50 Vascular dementia, unspecified severity, without behavioral disturbance, psychotic disturbance, mood disturbance, and anxiety; Z79.82 Long term (current) use of aspirin; Z79.899 Other long term (current) drug therapy
CPT/HCPCS: 0241U; 36415; 51701; 70450; 70549; 70551; 71045; 80048; 80053; 80061; 81003; 82947; 83036; 84484; 85025; 93005; 93010; 93246; 93306; 94640; 94664; 94760; 97116; 97162; 97166; 97530; 99285-25; A9270; A9579; G0378; J7512

== ENCOUNTER 2021-08-19 13:10 | Emergency (ER) | payer OTHER ==
[~2021-08-19] VITALS: Ht 172.7 cm; Wt 75.3 kg
[~2021-08-19 13:10] MED LIST changes: +Prednisone10 MG PO; +Vitamin D1000 UNI1 PO
[2021-08-19 14:15] LABS: BASOPHILS ABSOLUTE AUTO 0.08 K/mm3 (0.00-0.23); BASOPHILS PERCENT AUTO 1 % (0-2); EOSINOPHILS ABSOLUTE AUTO 0.12 K/mm3 (0.00-0.68); EOSINOPHILS PERCENT AUTO 1 % (0-6); Hematocrit 42.8 % (37.0-53.0); Hemoglobin 14.4 g/dL (13.5-17.5); IMMATURE GRAN ABSOLUTE AUTO 0.02 K/mm3 (0.00-0.10); IMMATURE GRAN PERCENT AUTO 0 % (0-1); LYMPHOCYTES ABSOLUTE AUTO 1.12 K/mm3 (0.84-5.20); LYMPHOCYTES PERCENT AUTO 12 % (21-46); MONOCYTES ABSOLUTE AUTO 0.82 K/mm3 (0.16-1.47); MONOCYTES PERCENT AUTO 8 % (4-13); Mean Corpuscular HGB 31.9 pg (26.0-34.0); Mean Corpuscular HGB Conc 33.6 g/dL (31.5-36.5); Mean Corpuscular Volume 95 fL (80-100); Mean Platelet Volume 9.4 fL (9.1-12.4); NEUTROPHILS ABSOLUTE AUTO 7.61 K/mm3 (1.96-9.15); NEUTROPHILS PERCENT AUTO 78 % (41-73); Platelet Count 390 K/mm3 (150-400); RDW Coefficient Variation 13.1 % (11.7-14.2); RDW Standard Deviation 45.8 fL (35.1-46.3); Red Blood Cell Count 4.51 M/mm3 (4.30-5.90); White Blood Cell Count 9.77 K/mm3 (4.00-11.30)
[2021-08-19 14:43] LABS: Bilirubin, Total 0.5 mg/dL (0.1-1.0); Calcium, Blood 9.9 mg/dL (8.5-10.1); Creatinine, Blood 1.39 mg/dL (0.60-1.20); Globulin, Blood 3.9 g/dL (2.2-4.0); Potassium, Blood 4.3 mmol/L (3.5-5.5); Total Protein, Blood 7.9 g/dL (6.4-8.2)
[2021-08-19 14:52] LABS: Influenza A, PCR NEGATIVE (NEGATIVE); Influenza B, PCR NEGATIVE (NEGATIVE); Resp Syncytial Virus, PCR NEGATIVE (NEGATIVE); SARS-Cov-2 (COVID-19) PCR, MMC NEGATIVE (NEGATIVE)
[2021-08-19] MEDS ORDERED: ONDA4 PO (17:46)
[2021-08-19 20:04] LABS: Source, Urine Clean Catch
[2021-08-19 20:07] LABS: Appearance, Urine Clear (Clear); Bilirubin, Urine Neg (Neg); Blood, Urine Neg (Neg); Color, Urine Yellow (P-Yellow); Glucose Qualitative, Urine Neg (Neg); Ketones, Urine Neg (Neg); Leukocyte Esterase, Urine Neg (Neg); Nitrite, Urine Neg (Neg); Protein, Urine 1+ (Neg); Urobilinogen, Urine NORM (Normal)
== END 2021-08-19 18:00 | disposition home or self-care (01) ==
LOC: ER 13:10
PROVIDERS: Student in an Organized Health Care Education/Training Program
DX: R42 Dizziness and giddiness (principal); R11.0 Nausea; F03.90 Unspecified dementia, unspecified severity, without behavioral disturbance, psychotic disturbance, mood disturbance, and anxiety; I10 Essential (primary) hypertension; Z20.822 Contact with and (suspected) exposure to COVID-19; Z79.899 Other long term (current) drug therapy; Z86.73 Personal history of transient ischemic attack (TIA), and cerebral infarction without residual deficits; Z87.891 Personal history of nicotine dependence
CPT/HCPCS: 0241U; 36415; 70450; 71045; 80053; 83880; 84484; 85025; 93005; 93010; 99284-25